=== PATIENT | female | born 1955 | race American Indian/Alaskan Native ===

== ENCOUNTER 2017-10-11 10:58 | Day surgery (SDC) | payer OTHER ==
[~2017-10-11 10:58] MED LIST: ANCEF/STERILE WATER 2 GM/20 ML IV NR; LACTATED RINGERS 1,000 ML IV SCH; VERSED IV NR
[2017-10-11] MEDS ORDERED: XYLOCAINE 1%/ EPI 1:100,000 INFILTRATI ONE (11:11)
[2017-10-11] MEDS ORDERED: MARCAINE 0.25% INFILTRATI ONE (11:11)
[2017-10-11] MEDS ORDERED: NACL BACTERIOSTATIC INFILTRATI ONE (11:31)
[2017-10-11] MEDS ORDERED: DILAUDID IV PRN (11:46)
[2017-10-11] MEDS ORDERED: TORADOL IV PRN (11:46)
[2017-10-11] MEDS ORDERED: ZOFRAN IV PRN (11:46)
--- NOTE | 2017-10-11 11:47 | Anesthesia Day of Surgery ---
Anesthesia Day of Surgery - Day of Surgery Patient Examined: Yes Patient H&P Reviewed: Yes Patient is NPO: Yes
--- NOTE | 2017-10-11 11:48 | Anesthesia Consultation ---
Anesthesia Consult and Med Hx Date of service: 10/11/17 - Airway Anesthetic Teeth Evaluation: Edentulous ROM Head & Neck: Adequate Mental/Hyoid Distance: Adequate Mallampati Class: Class II Intubation Access Assessment: Probably Good - Pulmonary Exam CTA: Yes - Cardiac Exam Cardiac Exam: RRR - Pre-Operative Health Status ASA Pre-Surgery Classification: ASA2 Proposed Anesthetic Plan: General, MAC (denies GERD, Denies HTN, Denies DM) - Pulmonary Hx Smoking: No Hx Asthma: No COPD: No Hx Pneumonia: No Hx Sleep Apnea: No - Central Nervous System Hx Psychiatric Problems: No - Hematic Hx Anemia: No - Other Systems Hx Alcohol Use: Yes (OCCAS) Hx Substance Use: No Hx Cancer: No
[2017-10-11] MEDS ORDERED: ROBINUL ONE ×2 (12:59→14:42)
[2017-10-11] MEDS ORDERED: ZOFRAN ONE (12:59)
[2017-10-11] MEDS ORDERED: DECADRON ONE (12:59)
[2017-10-11] MEDS ORDERED: DIPRIVAN 10 MG/ML IV ONE (13:00)
[2017-10-11] MEDS ORDERED: VERSED ONE (13:00)
[2017-10-11] MEDS ORDERED: SUBLIMAZE ONE ×2 (13:00)
[2017-10-11] MEDS ORDERED: ANCEF/STERILE WATER 2 GM/20 ML IV NR (13:00)
[2017-10-11] MEDS ORDERED: MARCAINE-EPI 0.25%-1:200,000 INFILTRATI ONE ×3 (14:25→14:35)
[2017-10-11] MEDS ORDERED: XYLOCAINE MPF 2% ONE (14:30)
[2017-10-11] MEDS ORDERED: ZEMURON IV ONE (14:30)
[2017-10-11] MEDS ORDERED: NACL 0.9% IR ONE (14:35)
[2017-10-11] MEDS ORDERED: TORADOL ONE (14:42)
[2017-10-11] MEDS ORDERED: BLOXIVERZ ONE (14:42)
--- NOTE | 2017-10-11 14:57 | Short Stay Summary ---
Short Stay Documentation Date of service: 10/11/17 - History H&P: obtained from office - Allergies and Medications Current Medications: Allergies No Known Allergies Allergy (Verified 10/03/17 14:48) Home Medications Medication Instructions Recorded Confirmed Last Taken Type Dorzolamide HCl/Timolol Maleat 1 drop OU QDAY 10/11/17 10/11/17 10/11/17 History [Cosopt Eye Drops] Latanoprost 0.005% 1 drops OU QDAY 10/11/17 10/11/17 10/10/17 History Multivitamin Tab [Multiple Vitamin 1 each PO QDAY 10/11/17 10/11/17 10/10/17 History TAB (Theragran)] Active Medications Hydromorphone HCl (Dilaudid) 0.5 mg IV Q10MIN PRN PRN Reason: Pain , Severe (7-10) Stop: 10/11/17 23:59 Lactated Ringer's (Lactated Ringers) 1,000 mls @ 100 mls/hr IV DIRECT NAHED Last Admin: 10/11/17 11:35 Dose: 100 mls/hr Ketorolac Tromethamine (Toradol) 30 mg IV ONCE PRN PRN Reason: Pain, Moderate (4-6) Midazolam HCl (Versed) 2 mg IV PREOP NR Stop: 10/11/17 23:59 Ondansetron HCl (Zofran) 4 mg IV ONCE PRN PRN Reason: Nausea And Vomiting - Brief post op/procedure progress note Date of procedure: 10/11/17 Pre-op diagnosis: Soft tissue mass, back, subcutaneous, >3cm Post-op diagnosis: same Procedure: Excision of STM back Anesthesia: GETA, local Surgeon: REINA MENDEZ Estimated blood loss: none Pathology: list (Soft tissue mass back) Specimen disposition: to lab Condition: stable - Disposition Condition at discharge: Good Disposition: DC-01 TO HOME OR SELFCARE Short Stay Discharge Plan Activity: no restrictions Diet: regular Wound: remove dressing (10/13/17 and then may shower) Follow up with: PRIMARY CARE, [Primary Care Provider] - 7 Days REINA MENDEZ MD [Staff Physician] - 7 Days Prescriptions: oxyCODONE /ACETAMINOPHEN [Percocet 5/325] 1 tab PO Q4HR PRN #15 tab PRN Reason: Pain , Severe (7-10)
[2017-10-11] MEDS ORDERED: PROAIR IH ONE (14:58)
[2017-10-11] MEDS ORDERED: PROVENTIL IH ONE (15:01)
--- NOTE | 2017-10-11 15:10 | Operative Report ---
PREOPERATIVE DIAGNOSIS: Soft tissue mass on the back, the subcutaneous level greater than 3 cm. POSTOPERATIVE DIAGNOSIS: Soft tissue mass on the back, the subcutaneous level greater than 3 cm. PROCEDURE: Excision of soft tissue mass from the back, greater than 3 cm, subcutaneous level. SURGEON: Brian Ochoa MD ANESTHESIA: General and local. ESTIMATED BLOOD LOSS: Minimal. SPECIMEN: Soft tissue mass from back. COMPLICATIONS: None. INDICATIONS: This is a 62-year-old female who has a soft tissue mass in her back, which is quite large, that presents now for excision for diagnostic and therapeutic purposes. She is going to be given general anesthesia because of the location and her need for being prone and the size of the lesion. DESCRIPTION OF PROCEDURE: The patient was brought to the operating room, identified, placed in the supine position. General anesthesia was achieved. She was then put in prone position. Her back was then prepped and draped in usual manner. All the proper pressure points and joints were protected. We anesthetized the area after prepping and draping with Marcaine with epinephrine. We made an incision over top of the mass itself, dissected this down to the mass through the subcutaneous tissues and excised the mass in total with a combination of blunt, sharp and cautery dissection. The mass was sent to pathology. The pocket that was in place was hemostatic. We irrigated this copiously until clear and good hemostasis was achieved with cautery. We then closed the deeper layer with a 3-0 Vicryl and closed the epidermis with a 4-0 Vicryl suture, strips and bandage. She tolerated the procedure well without complications. JOB# [id number] BSNatan/EVELYN
[2017-10-11] MEDS ORDERED: PERCOCET 5/325 PO PRN (15:27)
[2017-10-11] MEDS ORDERED: XOPENEX IH ONE (16:51)
[2017-10-11 17:54] VITALS: BP 139/82
== END 2017-10-11 18:00 | disposition home or self-care (01) ==
LOC: OR 10:58
PROVIDERS: ATTEND Surgery
DX: M79.89 Other specified soft tissue disorders (principal); F17.200 Nicotine dependence, unspecified, uncomplicated; Z79.899 Other long term (current) drug therapy; Z72.89 Other problems related to lifestyle; Z98.890 Other specified postprocedural states; Z80.3 Family history of malignant neoplasm of breast; Z80.41 Family history of malignant neoplasm of ovary
CPT/HCPCS: 21931; 88307; J1100; J1885; J2250; J2405; J2704; J2710; J3010; J7120; 88304